=== PATIENT | female | born 1960 | race Caucasian/White ===

== ENCOUNTER → 2017-07-10 | Day surgery (SDC) | payer MEDICARE, OTHER ==
[2017-07-09 09:44] LABS: BASOPHILS # (AUTO) 0.1 (0.0-0.1); BASOPHILS % 0.9 % (0.0-1.0); EOSINOPHILS # (AUTO) 0.1 (0.0-0.4); EOSINOPHILS % 1.8 % (0.0-6.0); HEMATOCRIT 37.7 % (34.2-44.1); HEMOGLOBIN 13.3 g/dL (12.0-16.0); LYMPHOCYTES # (AUTO) 2.2 (1.0-3.2); LYMPHOCYTES % 33.2 % (18.0-39.1); MEAN CORPUSCULAR HEMOGLOBIN 31.4 pg (28-32); MEAN CORPUSCULAR HGB CONC 35.3 g/dL (31-35); MEAN CORPUSCULAR VOLUME 89.1 fL (81-99); MONOCYTES # (AUTO) 0.6 (0.2-0.8); MONOCYTES % 9.3 % (4.4-11.3); NEUTROPHILS # (AUTO) 3.6 (2.1-6.9); NEUTROPHILS % 54.2 % (38.7-80.0); PLATELET COUNT 315 x10e3/uL (140-360); RED BLOOD COUNT 4.23 x10e6/uL (3.6-5.1); RED CELL DISTRIBUTION WIDTH 12.2 % (11.7-14.4)
[2017-07-09 09:58] LABS: PROTHROMBIN TIME 12.4 seconds (11.9-14.5)
[2017-07-09 10:08] LABS: ALANINE AMINOTRANSFERASE 38 IU/L (0-55); ALBUMIN 3.7 g/dL (3.5-5.0); ALKALINE PHOSPHATASE 94 IU/L (40-150); ANION GAP 10.7 mmol/L (8-16); BLOOD UREA NITROGEN 11 mg/dL (7-26); BUN/CREATININE RATIO 15 (6-25); CALCIUM 9.3 mg/dL (8.4-10.2); CARBON DIOXIDE 28 mmol/L (22-29); CHLORIDE 96 mmol/L (98-107); CHOL/HDL RATIO 3.3 (3.0-3.6); CHOLESTEROL 176 MD/DL (0-199); CREATININE, SERUM 0.75 mg/dL (0.57-1.11); EST GLOMERULAR FILTRATION RATE > 60 ML/MIN (60-); GLUCOSE 108 mg/dL (74-118); HDL CHOLESTEROL 54 MG/DL (40-60); LDL CHOLESTEROL 106 MG/DL (60-130); POTASSIUM 3.7 mmol/L (3.5-5.1); SODIUM 131 mmol/L (136-145); TRIGLYCERIDES 81 MG/DL (0-149)
[~2017-07-10] VITALS: Ht 160 cm; Wt 82.6 kg
[~2017-07-10] MED LIST: ALBUTEROL1.25 MG/3 INH; ALPRAZOLAM 0.5 MG TAB PO ONE; ALPRAZOLAM 0.5 MG TAB PRN; ASPIR 8181 MG PO; BUPROPION HCL100 MG PO; CLONIDINE HCL0.1 MG PO; DICLOFENAC SODI50 MG PO; DIPHENHYDRAMINE HCL 25 MG CAP PO ONE; DIPHENHYDRAMINE HCL 25 MG CAP PRN; FENTANYL CITRATE/PF 100MCG/2 ML INJ PRN; HEPARIN SOD (PORCINE) 1000 UNIT/ML 30ML PRN; HEPARIN SOD/SOD CHLORIDE 2,000 ML PRN; HYDROCHLOROTHIA25 MG PO; IOPAMIDOL 370 MG/ML 200 ML INFUS..BTL INJ PRN; LETROZOLE2.5 MG PO; LIDOCAINE HCL 2% LOCAL 20 ML VIAL PRN; MIDAZOLAM HCL 2 MG/2 ML VIAL IV PRN; MIDAZOLAM HCL 2 MG/2 ML VIAL PRN; NITROGLYCERIN/D5W 200 MCG/ML 250 ML PRN; SODIUM CHLORIDE 0.9% 1000ML 1,000 ML PRN
[2017-07-10 08:28] VITALS: BP 145/86
[2017-07-10] MEDS: FENTANYL CITRATE/PF 100MCG/2 ML INJ IV PRN ×2 (09:25→09:32)
--- NOTE | 2017-07-10 10:13 | Operative Report ---
DATE OF PROCEDURE: July 10, 2017 INDICATIONS: Coronary artery disease and unstable angina. PROCEDURES PERFORMED 1. Left heart catheterization. 2. Selective coronary angiography with left ventriculography. 3. Deployment of right groin Perclose. COMPLICATIONS: None. RECOMMENDATIONS: Medical therapy including Ranexa. Access obtained in the right femoral artery. A 6-[place] sheath was placed. Diagnostic coronary angiogram revealed no angiographic coronary artery disease. Dominant right coronary artery. Excellent flow in all vessels. There was some EKG changes with each injection consistent with endothelial dysfunction. LV ejection fraction 65%. LV end-diastolic pressure 12. No gradient across the aortic valve on pullback. Right groin repaired use Perclose. Patient discharged home same day. Job#: [id number] ELISABET
[2017-07-10 11:16] VITALS: BP 134/83
== END | disposition home or self-care (01) ==
LOC: CATH LAB 07:48
PROVIDERS: ATTEND Internal Medicine Interventional Cardiology
DX: I25.110 Atherosclerotic heart disease of native coronary artery with unstable angina pectoris (principal); I10 Essential (primary) hypertension; J45.909 Unspecified asthma, uncomplicated; Z68.34 Body mass index [BMI] 34.0-34.9, adult; Z82.49 Family history of ischemic heart disease and other diseases of the circulatory system
CPT/HCPCS: 36415; 77002; 80053; 80061; 85025; 85610; 93458; C1725; C1769; J2001; J2250; J7030; Q9967; 36140; 93452; J1644

== ENCOUNTER → 2019-02-03 | Outpatient (CLI) | payer MEDICARE, OTHER ==
[~2019-02-03] MED LIST changes: -ALPRAZOLAM 0.5 MG TAB PO ONE; -ALPRAZOLAM 0.5 MG TAB PRN; -DIPHENHYDRAMINE HCL 25 MG CAP PO ONE; -DIPHENHYDRAMINE HCL 25 MG CAP PRN; -FENTANYL CITRATE/PF 100MCG/2 ML INJ PRN; -HEPARIN SOD (PORCINE) 1000 UNIT/ML 30ML PRN; -HEPARIN SOD/SOD CHLORIDE 2,000 ML PRN; -IOPAMIDOL 370 MG/ML 200 ML INFUS..BTL INJ PRN; -LIDOCAINE HCL 2% LOCAL 20 ML VIAL PRN; -MIDAZOLAM HCL 2 MG/2 ML VIAL IV PRN; -MIDAZOLAM HCL 2 MG/2 ML VIAL PRN; -NITROGLYCERIN/D5W 200 MCG/ML 250 ML PRN; -SODIUM CHLORIDE 0.9% 1000ML 1,000 ML PRN
--- NOTE | 2019-02-03 11:52 | Diagnostic Imaging Report ---
EXAMINATION: SHOULDER LEFT COMPLETE INDICATION: Left shoulder pain COMPARISON: None FINDINGS: No acute fracture or dislocation. Mild degenerative changes of the glenohumeral and acromioclavicular joints. The soft tissues appear unremarkable. The visualized portions of the left lung are clear. IMPRESSION: No acute fracture or dislocation. Mild degenerative changes. Signed by: Riky Finch MD on 02/03/2019 11:49 AM
== END ==
LOC: RAD 11:15
PROVIDERS: ATTEND Family Medicine
DX: L30.8 Other specified dermatitis (principal); M25.512 Pain in left shoulder; M75.102 Unspecified rotator cuff tear or rupture of left shoulder, not specified as traumatic

== ENCOUNTER → 2019-10-09 | Outpatient (CLI) | payer MEDICARE, OTHER | LOC: RAD 09:33 | PROVIDERS: ATTEND Family Medicine | DX: R94.31 Abnormal electrocardiogram [ECG] [EKG] (principal) | CPT/HCPCS: 93306 ==

== ENCOUNTER → 2019-10-28 | Outpatient (CLI) | payer MEDICARE ==
--- NOTE | 2019-10-28 09:53 | Diagnostic Imaging Report ---
CT of the chest, without contrast, 10/28/2019. History: Cough, allergies. Comparison: None available. Technique: Multidetector CT scanning of the chest was performed from the level of the apices to the upper abdomen without contrast. Coronal and sagittal multiplanar reformations were obtained. RADIATION DOSE: Total DLP: 5:15 mGy*cm Dose modulation, iterative reconstruction, and/or weight based adjustment of the mA/kV was utilized to reduce the radiation dose to as low as reasonably achievable. Discussion: Evaluation is limited without IV contrast. Chest: The heart, aorta, and pulmonary vessels are normal in size. The thyroid is unremarkable. There is no gross evidence of adenopathy. Scattered linear opacities are present bilaterally. There is no evidence of consolidation, suspicious nodule, or pleural effusion. Limited evaluation of the upper abdomen shows normal adrenal glands. Bones and soft tissues: No acute abnormality. Degenerative changes are present throughout the thoracic spine and both shoulders. Bilateral breast implants are noted. Surgical clips are present in the right axilla. IMPRESSION: Minimal bilateral linear scarring versus atelectasis. Otherwise unremarkable noncontrast CT of the chest. Signed by: Jean Pierre Sebastian on 10/28/2019 9:50 AM
== END ==
LOC: CT 08:35
PROVIDERS: ATTEND Family Medicine
DX: R05 Cough (principal)
CPT/HCPCS: 71250

== ENCOUNTER → 2022-07-14 | Outpatient (CLI) | payer MEDICARE | LOC: MRI 13:45 | PROVIDERS: ATTEND Family Medicine | DX: M51.17 Intervertebral disc disorders with radiculopathy, lumbosacral region (principal) | CPT/HCPCS: 72148 ==

== ENCOUNTER → 2024-02-20 | Outpatient (REF) | payer MEDICARE | LOC: RAD 11:55 | PROVIDERS: ATTEND Nurse Practitioner Family | DX: R05.3 Chronic cough (principal) | CPT/HCPCS: 71046 ==